=== PATIENT | female | born 1980 | race Caucasian/White ===

== ENCOUNTER → 2017-04-20 14:49 | Outpatient (CLI) | payer OTHER, SELFPAY ==
[2017-04-23 14:14] LABS: HPV Reflexed? NOT INDICATED
== END ==
PROVIDERS: Family Provider Internal Medicine; PCP Internal Medicine; Visit Provider Obstetrics & Gynecology
DX: Z12.4 Encounter for screening for malignant neoplasm of cervix (principal)
CPT/HCPCS: 88175; G0145

== ENCOUNTER → 2017-05-19 07:21 | Outpatient (CLI) | payer OTHER, SELFPAY ==
--- NOTE | 2017-05-19 07:24 | HPBI_ITS ---
MAMMOGRAPHY - BILATERAL SCREENING REASON FOR EXAM: Female, 36 years old. Routine annual screening examination. PERTINENT HISTORY: Grandmother with breast cancer. TECHNIQUE: Digital bilateral breast millie (3D mammographic acquisition) in the CC and MLO projections. 2-D mediolateral oblique (MLO) and craniocaudad (CC) views of both breasts were obtained. CAD: Full Field Digital Mammography with Computer Added Detection was performed. COMPARISON: Comparison is made with prior Isovue examination dated July 16, 2004. FINDINGS: Breast Composition: The breasts are heterogeneously dense, which may obscure small masses. There are no dominant masses or suspicious calcifications. No other significant abnormalities are identified. There has been no significant change since the prior study. HPBI/SCREENING MAMM (CAD), BILAT IMPRESSION: Stable bilateral screening mammogram. Yearly follow-up mammogram recommended. (A) ASSESSMENT CATEGORY: BIRADS Category 1: Negative. A letter regarding these results will be sent to the patient by the facility within 30 days. Approximately 10% of breast cancers are not detected by mammography. A normal mammogram should not delay biopsy of a clinically suspicious abnormality. [id number] Electronically Signed: Jin Arreaga MD at 9:00 EST Tel [phone], Service support ,
== END ==
PROVIDERS: Family Provider Family Medicine; PCP Family Medicine; Visit Provider Obstetrics & Gynecology
DX: Z12.31 Encounter for screening mammogram for malignant neoplasm of breast (principal)
CPT/HCPCS: 77063; 77067

== ENCOUNTER → 2018-06-29 13:16 | Outpatient (CLI) | payer OTHER, SELFPAY ==
--- NOTE | 2018-06-29 13:19 | BI_ITS ---
MAMMOGRAPHY - BILATERAL SCREENING REASON FOR EXAM: Female, 37 years old. Routine annual screening examination. PERTINENT HISTORY: Grandmother with breast cancer. TECHNIQUE: Digital bilateral breast millie (3D mammographic acquisition) in the CC and MLO projections. 2-D mediolateral oblique (MLO) and craniocaudad (CC) views of both breasts were obtained. CAD: Full Field Digital Mammography with Computer Added Detection was performed. COMPARISON: Comparison is made with prior study dated May 19, 2017. FINDINGS: Breast Composition: The breasts are heterogeneously dense, which may obscure small masses. Asymmetrical breast tissue in the deep central portion of the left breast as seen on the craniocaudad view. Correlation with ultrasound is recommended. No other significant abnormalities are identified. BI/SCREENING MAMM (CAD), BILAT IMPRESSION: Asymmetrical breast tissue seen in the deep central portion of the left breast as seen on the craniocaudad view. Correlation with ultrasound is recommended. ASSESSMENT CATEGORY: BIRADS Category 0: Incomplete. Need additional imaging evaluation. A letter regarding these results will be sent to the patient by the facility within 30 days. Approximately 10% of breast cancers are not detected by mammography. A normal mammogram should not delay biopsy of a clinically suspicious abnormality. [id number] Electronically Signed: Jin Arreaga, at 15:23 EDT , Service support ,
== END ==
PROVIDERS: Family Provider Family Medicine; PCP Family Medicine; Referring Provider Obstetrics & Gynecology; Visit Provider Obstetrics & Gynecology
DX: Z12.31 Encounter for screening mammogram for malignant neoplasm of breast (principal)
CPT/HCPCS: 77063; 77067

== ENCOUNTER → 2018-07-01 15:11 | Outpatient (CLI) | payer OTHER, SELFPAY ==
--- NOTE | 2018-07-01 15:14 | US_ITS ---
STUDY: ULTRASOUND BREAST - LEFT REASON FOR EXAM: Female, 37 years old. Abnormal screening mammogram. TECHNIQUE: Axial and longitudinal images of the LEFT breast were performed with a high resolution ultrasound transducer. COMPARISON: Comparison is made with prior mammogram dated June 29, 2018. FINDINGS: LEFT Breast: The entire left breast was examined by ultrasound. There is homogeneous fibroglandular tissue. No solid or cystic mass lesion is seen. US/Breast Limited Unilateral IMPRESSION: Unremarkable sonogram of the breast. Routine mammographic follow-up is recommended. ASSESSMENT CATEGORY: BIRADS Category 1: Negative. A letter regarding these results will be sent to the patient by the facility within 30 days. Electronically Signed: Jin Arreaga, at 13:56 EDT , Service support ,
== END ==
PROVIDERS: Family Provider Family Medicine; PCP Family Medicine; Referring Provider Obstetrics & Gynecology; Visit Provider Obstetrics & Gynecology
DX: R92.8 Other abnormal and inconclusive findings on diagnostic imaging of breast (principal)
CPT/HCPCS: 76642; 77067

== ENCOUNTER 2018-12-05 17:08 | Emergency (ER) | payer OTHER, SELFPAY ==
[2018-12-05 17:11] VITALS: BP 100/63; PULSE 129; RESP 22; TEMP 37.2; O2SAT 100; BMI 17.4
--- NOTE | 2018-12-05 17:31 | CT_ITS ---
STUDY: CT ABDOMEN AND PELVIS WITHOUT CONTRAST REASON FOR EXAM: Female, 38 years old. Right-sided flank pain RADIATION DOSAGE (If Supplied By Facility): CTDIvol = ( 6.04 ) mGy, DLP = ( 271.80 ) mGycm TECHNIQUE: Transaxial images were obtained from the dome of the diaphragm to the symphysis pubis without oral contrast, and without intravenous contrast. Sagittal and coronal images were reconstructed. Individualized dose optimization techniques were used for this CT. COMPARISON: 03/04/2016 FINDINGS: The visualized lung bases are unremarkable. The visualized portions of the heart are within normal limits. Normal liver. Normal gallbladder and extrahepatic biliary system. The spleen is mildly enlarged measuring 13.4 cm in craniocaudal dimension. Normal pancreas. Normal bilateral adrenal glands. There are punctate calcifications of the bilateral kidneys. No hydronephrosis or urinary calcifications. Normal visualized stomach. Normal small intestine. Normal colon. The appendix is visualized and appears normal. Normal abdominal aorta. Normal inferior vena cava. Normal retroperitoneum. Normal urinary bladder. Vascular phleboliths of the pelvis noted. Normal osseous structures. CT/Abdomen/Pelvis without Cont IMPRESSION: Bilateral punctate nephrolithiasis without hydronephrosis. Electronically Signed: Jorden Terrell MD ([facility]) at 18:51 EDT , Service support ,
[2018-12-05] MEDS: 0.9% Normal Saline 1,000 ML 1000 ML IV (17:52)
[2018-12-05] MEDS: Ondansetron 4 MG/2 ML Vial IV (17:52)
[2018-12-05] MEDS: Morphine 4 MG/ML Syringe IV (17:53)
[2018-12-05] MEDS: Ketorolac 30 MG/ML Syringe IV (17:53)
--- NOTE | 2018-12-05 17:59 | ED.VISSUMM ---
- ER Visit Summary Date of Service: 12/05/18 Chief Complaint: Right flank pain History of Present Illness: The patient is a 38 F history of prior kidney stones, leukemia reportedly cured in 2017 with chemoradiation and history of anemia. Patient has had right flank pain continuous since this morning. Associated nausea but no vomiting or diarrhea. No dysuria hematuria. No fever or chills. Trauma. Physical Examination: Middle-aged female no acute distress. Vital signs stable afebrile. Pulse ox on percent room air no signs of hypoxia. H EENT exam is unremarkable. Neck nontender no lymphadenopathy. Lungs clear to auscultation bilaterally. Heart tachycardic no murmur. Abdomen soft nontender normal bowel sounds no peritoneal signs. He is moving all 4 extremities and neurovascular intact. Neurological she is awake alert. Test Results: White count elevated at 109,000 with a hemoglobin of 9 and platelets 26,000 along with 96,000 blasts. She had normal hemoglobin and blood counts on October 22. This is consistent with acute AML relapse. Her chemistries are unremarkable with normal creatinine and gap. UA showed positive nitrates and blood but no white cells and no bacteria. Serum test was negative. CT flank showed bilateral renal stones but no acute obstruction or ureteral calculi. There is also increased stool. Emergency Department Course and Treatment: Patient treated with IV fluids, Toradol, morphine and Zofran. Labs, urinalysis and CT flank obtained. Repeat exam patient is resting comfortably at 1938. I went over all test results with both her and her . I also spoke to Dr. Hoang of oncology and we will transfer to the [facility]. I have already spoken to the transfer line. Treatment Plan: Transfer to [facility] for acute therapy for relapse of AML. Disposition: Transfer Impression: Acute right flank pain of uncertain etiology. 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 This note was generated with [email or web address] dictation software. It may contain incorrect words, spelling, and punctuation that were not noted in review of the chart prior to signing ED Disposition - Plan for ED Patient: Referrals: Valentin Amanda MD [Primary Care Provider] -
[2018-12-05 18:03] LABS: Mean Corpuscular Hgb 29.8 pg (27.0-32.0); Mean Platelet Vol. 9.9 fl (6.2-12.0); POSITIVE COUNT YES; POSITIVE DIFFERENTIAL YES; POSITIVE MORPHOLOGY YES; RBC Distribution Width CV 16.5 % (11.6-14.6); RBC Distribution Width SD 56.6 fl (35.1-43.9); Red Blood Count 3.02 M/mm3 (4.2-5.4)
[2018-12-05 18:05] LABS: Bacteria 0 SEEN /hpf (None Seen); Mucous, Urine 0 SEEN /hpf (<or=2+)
[2018-12-05 18:06] LABS: Platelet Count 26 K/mm3 (150-450); White Blood Count 109.2 K/mm3 (4.4-11.0)
[2018-12-05 18:08] LABS: Color, Urine Yellow (Yellow); Glucose, Dipstick Normal (Normal); Ketone-Dipstick 50 mg/dl (Negative); Leukocyte Esterase-Dipstick 25 /ul (Negative); Nitrite-Dipstick Positive (Negative); Occult Blood-Urine 250 /ul (Negative); Protein-Dipstick 15 mg/dl (Negative); Urine Bilirubin Dipstick Negative (Negative); Urine Clarity Sl. Cloudy (Clear); Urine Urobilinogen Normal (Normal); Urine pH 6.5 (5.0 - 8.0)
[2018-12-05 18:11] LABS: Anion Gap 5 (5-15); BUN 12 mg/dL (7-18); BUN/Creat Ratio 12.8 RATIO (10-20); Calcium,Total 9.2 mg/dL (8.5-10.1); Chloride 105 mmol/L (98-107); Creatinine, Serum 0.94 mg/dL (0.55-1.02); EST Glomerular Filtration Rate 70 mL/min (>60); Est Glom Filt Rate - Afr Amer 85 mL/min (>60); Glucose 143 mg/dL (74-106); Potassium 4.2 mmol/L (3.5-5.1); Sodium Level 138 mmol/L (136-145)
[2018-12-05 18:17] LABS: White Blood Cells 0-5 SEEN /hpf (0-5)
[2018-12-05 18:18] LABS: Amorphous Sediment 1+ URATE; Red Blood Cells-Urine 10-25 SEEN /hpf (0-5); Squamous Epithelial Cells - UA 0-5 SEEN /hpf (5-10)
[2018-12-05 18:22] LABS: Internal QC Validated? YES +Cl - CLEAR BKGD; Pregnancy, Serum, hCG Quali. NEGATIVE Negative
[2018-12-05 18:45] LABS: Differential Indicated MANUAL DIFF
[2018-12-05 18:53] LABS: Blast 96 % (0-0); Lymphocyte 3 % (19-41); Myelocyte 1 (0-0); Total Cells Counted 100 (MANUAL DIFF)
[2018-12-05 19:00] LABS: Absolute Lymphocyte Count 3.28 X10^3/uL (0.83-4.51); Anisocytosis 1+; Differential Comment SCANNED; Lymphocyte # 3.28 X10^3/ul (4.0); Platelet Estimate MKD DEC (ADEQ); Smudge Cells 1+
[2018-12-05 19:21] VITALS: BP 122/76; PULSE 124; RESP 16; TEMP 37.7; O2SAT 98
--- NOTE | 2018-12-05 19:22 | ED.RN ---
[facility] PAGED FOR TRANSFER
--- NOTE | 2018-12-05 19:55 | ED.RN ---
PATIENT ACCEPTED AT [facility] [address] [facility] [phone]
[2018-12-06 12:22] LABS: Pathologist Review Reviewed
== END 2018-12-05 20:23 | disposition short-term general hospital (02) ==
LOC: ED 17:48
PROVIDERS: Emergency Provider Emergency Medicine; Family Provider Family Medicine; PCP Family Medicine
DX: C92.02 Acute myeloblastic leukemia, in relapse (principal); D69.6 Thrombocytopenia, unspecified; N20.0 Calculus of kidney; Z92.21 Personal history of antineoplastic chemotherapy; Z87.442 Personal history of urinary calculi; Z86.2 Personal history of diseases of the blood and blood-forming organs and certain disorders involving the immune mechanism
CPT/HCPCS: 74176; 80048; 81001; 84703; 85025; 87077; 87086; 87088; 87186; 96361; 96374; 96375; 99284; J7030; A4216; J2405